=== PATIENT | male | born 1975 | race Caucasian/White ===

== ENCOUNTER → 2017-10-20 12:35 | Outpatient (POV) | payer BC, SELFPAY | PROVIDERS: Family Provider Family Medicine; PCP Family Medicine; Visit Provider Nurse Practitioner Acute Care | DX: Z00.00 Encounter for general adult medical examination without abnormal findings (principal) ==

== ENCOUNTER → 2019-06-07 16:10 | Outpatient (POV) | payer BC, SELFPAY | PROVIDERS: PCP Family Medicine; Visit Provider Nurse Practitioner Family | DX: Z00.00 Encounter for general adult medical examination without abnormal findings (principal) ==

== ENCOUNTER 2020-03-24 16:51 | Emergency (ER) | payer BC, SELFPAY ==
[2020-03-24 17:08] VITALS: BP 136/78; PULSE 69; RESP 20; TEMP 36.8; O2SAT 98; BMI 27.4
--- NOTE | 2020-03-24 17:30 | HMH.EDUTC ---
[facility] [facility] [place] Clinical Impression: Otitis media Qualifiers: Otitis media type: suppurative Chronicity: acute Laterality: bilateral Recurrence: non-recurrent Spontaneous tympanic membrane rupture: without spontaneous rupture Qualified Code(s): H66.003 - Acute suppurative otitis media without spontaneous rupture of ear drum, bilateral Disposition: Home, Self-Care Condition on Discharge: Good Instructions: Middle Ear Infection Additional Instructions: Drink plenty of fluids. Take tylenol or ibuprofen for pain or fever. Take the medications as directed. Follow up with your regular doctor. GO TO THE ER FOR ANY WORSENING SYMPTOMS Prescriptions: methylPREDNISolone [Medrol] 4 mg PO DIRECTED 6 Days #21 tab.ds.pk Transmission Status: Received by [facility] Azithromycin [Z-Justyn 250mg Tab*] 250 mg PO UD DOSE PK #6 tab Transmission Status: Received by [facility] Referrals: Aditya Pendleton MD [Primary Care Provider] - Forms: Work/School Release Time of Disposition: 17:42 Medical Decision Making - Medical Records Medical records reviewed: No: I reviewed the patient's medical records. - Néstor Inquiry Pt receiving controlled substance: No Vital Signs: 03/24/20 17:08 03/24/20 17:48 Temperature 98.3 F 98.3 F Temperature Source Oral Pulse Rate 69 Pulse Rate [Right Brachial] 69 Respiratory Rate 20 20 Blood Pressure 136/78 Blood Pressure [Right Arm] 136/78 Blood Pressure Mean [Right Arm] 97 Blood Pressure Source [Right Arm] Automatic Cuff Blood Pressure Position [Right Arm] Sitting 02 Sat by Pulse Oximetry 98 Oxygen Delivery Method Room Air Orders (Tests/Meds): ED MEDICATIONS Discontinued Medications Generic Name Dose Route Start Last Admin Trade Name Freq PRN Reason Stop Dose Admin Azithromycin 500 mg 03/24/20 17:37 03/24/20 17:46 Zithromax 250mg Tablet PO 03/24/20 17:38 500 mg ONCE ONE Administration Protocol Methylprednisolone Sodium Succinate 125 mg 03/24/20 17:37 03/24/20 17:46 Solu-Medrol 125mg/2ml Vial IM 03/24/20 17:38 125 mg ONCE ONE Administration [facility] [place] [facility] [place] - General Stated complaint: possible ear infection pain in neck R side Time Seen by Provider: 03/24/20 17:15 Mode of Arrival: Ambulatory Source of Information: Patient Limitations: No Limitations Description of Symptoms (Recalled from Triage Doc. by RN): PATIENT C/O RIGHT EAR AND NECK PAIN X 2 DAYS. TOOK IBUPROFEN 2 HOURS DEEP FAT COOK FRY HEENT Symptoms (Recalled from RN notes): Yes Resp Symptoms (Recalled from RN notes): No Skin Symptoms (Recalled from RN notes): No MS Symptoms (Recalled from RN notes): No Functional Status (Recalled from RN notes): WNL - History of Present Illness Provider Complaint: He c/o right ear pain for the past 3 days. 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 - Related Data Home Medications Medication Instructions Recorded Confirmed Benazepril HCl 10 mg PO DAILY 02/28/18 03/24/20 Colestipol HCl 1 gm PO DAILY 02/28/18 03/24/20 Omeprazole [Omeprazole 40mg 40 mg PO DAILY 02/28/18 03/24/20 Capsule] Previous Rx's Medication Instructions Recorded Azithromycin [Z-Justyn 250mg Tab*] 250 mg PO UD DOSE PK #6 tab 03/24/20 methylPREDNISolone [Medrol] 4 mg PO DIRECTED 6 Days #21 03/24/20 tab.ds.pk Allergies Allergy/AdvReac Type Severity Reaction Status Date / Time Penicillins Allergy Unknown Verified 02/28/18 11:45 - Worker's Comp Is this a Worker's Comp case?: No H History - Hepatitis A Screen Drug use history?: No High risk sexual behaviors?: No History of sexually transmitted infection?: No Currently employed?: No Childcare worker?: No Do you have indoor plumbing?: Yes Do you have electricity?: Yes Attestation statement:: This patient has been screened for Hepatitis A risk factors. I have reviewed the patient's past medical history: Yes
[2020-03-24 17:48] VITALS: BP 136/78; PULSE 69; RESP 20; TEMP 36.8; O2SAT 98
== END 2020-03-24 18:00 | disposition home or self-care (01) ==
PROVIDERS: Emergency Provider Nurse Practitioner Family; PCP Family Medicine
DX: H66.003 Acute suppurative otitis media without spontaneous rupture of ear drum, bilateral (principal); Z88.0 Allergy status to penicillin; Z90.09 Acquired absence of other part of head and neck
CPT/HCPCS: 96372; 99201

== ENCOUNTER 2021-01-06 16:45 | Emergency (ER) | payer BC, SELFPAY ==
[2021-01-06 17:11] VITALS: BP 129/82; PULSE 68; RESP 19; TEMP 36.8; O2SAT 99; BMI 26.4
[2021-01-06 17:23] LABS: UTC Strep Screen (Rapid) Negative (Negative)
--- NOTE | 2021-01-06 17:26 | HMH.EDUTC ---
[facility] [place] Clinical Impression: Strep throat Otitis media Qualifiers: Otitis media type: suppurative Chronicity: acute Laterality: right Recurrence: non-recurrent Spontaneous tympanic membrane rupture: without spontaneous rupture Qualified Code(s): H66.001 - Acute suppurative otitis media without spontaneous rupture of ear drum, right ear Disposition: Home, Self-Care Condition on Discharge: Good Instructions: Middle Ear Infection, Strep Throat Additional Instructions: Start antibiotics today be sure to take it as ordered with the full length of time although you should start feeling better in 24-48 hours. Change toothbrush and toothpaste 24-48 hours after starting antibiotics Tylenol or Motrin as needed for fever or pain Encourage fluids, water, Gatorade, Powerade, try cold fluids, popsicles, ice cream will make it feel better You are contagious for 24 hours. Avoid kissing anyone, no eating or drinking after anyone. You are contagious. Follow-up the ER for new or worsening symptoms or no noticeable improvement over the next 24-48 hours. Start antibiotic as soon as possible and be sure to take as ordered for full length of time even though he should start feeling better in 24-48 hours. Tylenol or Motrin as needed for pain or fever Encourage fluids, water, Gatorade, Powerade, Pedialyte if infant/toddler/child Warm compresses often helps when placed over ear Return immediately for new or worsening symptoms no noticeable improvement in 48-72 hours and in 10-14 days to ensure the ears are return to baseline. Follow-up with primary care Prescriptions: predniSONE [Prednisone 20mg Tab] 20 mg PO BID #10 tab Transmission Status: Pending to [facility] Azithromycin [Zithromax 250mg tab] 250 mg PO DIRECTED #6 tab Transmission Status: Pending to [facility] Referrals: Aditya Pendleton MD [Primary Care Provider] - Time of Disposition: 17:31 Medical Decision Making - Néstor Inquiry Pt receiving controlled substance: No Vital Signs: 01/06/21 17:11 Temperature 98.3 F Temperature Source Oral Pulse Rate [Right Brachial] 68 Respiratory Rate 19 Blood Pressure [Right Arm] 129/82 Blood Pressure Mean [Right Arm] 97 Blood Pressure Source [Right Arm] Automatic Cuff Blood Pressure Position [Right Arm] Sitting 02 Sat by Pulse Oximetry 99 Oxygen Delivery Method Room Air - Lab Data Lab Results 01/06/21 17:06: Strep Scn Rapid Clinic Negative Orders (Tests/Meds): ORDERS Category Date Time Status Strep Screen Confirmation Stat Micro 01/06/21 17:06 Received [facility] [place] HPI - General Chief complaint: Urgent Treatment Center Stated complaint: Sore Throat Time Seen by Provider: 01/06/21 17:26 Mode of Arrival: Ambulatory Source of Information: Patient Limitations: No Limitations Description of Symptoms (Recalled from Triage Doc. by RN): PATIENT C/O SORE THROAT X 3 WEEKS HEENT Symptoms (Recalled from RN notes): Yes Resp Symptoms (Recalled from RN notes): No Skin Symptoms (Recalled from RN notes): No MS Symptoms (Recalled from RN notes): No Functional Status (Recalled from RN notes): WNL - History of Present Illness Provider Complaint: 45 yr old male presents for sore throat and ear pressure for 4 days. pt states his throat hurts to swallow and as he talks he becomes horse. - Related Data Home Medications Medication Instructions Recorded Confirmed Benazepril HCl 10 mg PO DAILY 02/28/18 03/24/20 Colestipol HCl 1 gm PO DAILY 02/28/18 03/24/20 Omeprazole [Omeprazole 40mg 40 mg PO DAILY 02/28/18 03/24/20 Capsule] Previous Rx's Medication Instructions Recorded Azithromycin [Z-Justyn 250mg Tab*] 250 mg PO UD DOSE PK #6 tab 03/24/20 methylPREDNISolone [Medrol] 4 mg PO DIRECTED 6 Days #21 03/24/20 tab.ds.pk Azithromycin [Zithromax 250mg 250 mg PO DIRECTED #6 tab 01/06/21 tab] predniSONE [Prednisone 20mg 20 mg PO BID #10 tab 01/06/21 Tab] Selvin
[2021-01-06 17:30] VITALS: BP 129/82; PULSE 68; RESP 19; TEMP 36.8; O2SAT 99
== END 2021-01-06 17:33 | disposition home or self-care (01) ==
PROVIDERS: Emergency Provider Nurse Practitioner Family; PCP Family Medicine
DX: J02.0 Streptococcal pharyngitis (principal); H66.001 Acute suppurative otitis media without spontaneous rupture of ear drum, right ear; I10 Essential (primary) hypertension; Z79.899 Other long term (current) drug therapy; Z88.0 Allergy status to penicillin
CPT/HCPCS: 87880; 99202; G0463

== ENCOUNTER 2022-05-11 09:06 | Emergency (ER) | payer BC, OTHER, SELFPAY ==
[2022-05-11 09:30] VITALS: BP 140/91; PULSE 76; RESP 20; TEMP 36.9; O2SAT 98; BMI 24.8
[2022-05-11 09:41] LABS: UTC Strep Screen (Rapid) Negative (Negative)
[2022-05-11 09:43] LABS: Adenovirus,PCR Not Detected (NotDetected); Bordetella Pertussis Not Detected (NotDetected); Chlamydophila Pneumoniae, PCR Not Detected (NotDetected); Coronavirus 229E Not Detected (NotDetected); Coronavirus NL63 Not Detected (NotDetected); Coronavirus OC43 Not Detected (NotDetected); Coronovirus HKU1,PCR Not Detected (NotDetected); Human Metapneumovirus Not Detected (NotDetected); Influenza A, PCR Not Detected (NotDetected); Influenza AH1, 2009 Not Detected (NotDetected); Influenza AH1, PCR Not Detected (NotDetected); Influenza AH3,PCR Not Detected (NotDetected); Influenza B, PCR Not Detected (NotDetected); Mycoplasma Pneumoniae, PCR Not Detected (NotDetected); Parainfluenza 1, PCR Not Detected (NotDetected); Parainfluenza 2, PCR Not Detected (NotDetected); Parainfluenza 3, PCR Not Detected (NotDetected); Parainfluenza 4, PCR Not Detected (NotDetected); Respiratory Syncytial Virus Not Detected (NotDetected); Rhinovirus/Enterovirus Not Detected (NotDetected)
--- NOTE | 2022-05-11 09:50 | HMH.EDUTC ---
[facility] [place] Impression: Maxillary sinusitis, acute Qualifiers: Recurrence: non-recurrent Qualified Code(s): J01.00 - Acute maxillary sinusitis, unspecified Disposition: Home, Self-Care Condition on Discharge: Good Instructions: DI for Sinusitis Additional Instructions: Start antibiotic patient to take as ordered for a full length of time even if you feel better. Sinus infections do not get better overnight. It may take 2-3 days to notice much improvement so be sure to use conservative measures as discussed for symptoms. Flonase 1 spray each nostril daily to help with nasal congestion, sinus and ear pressure/information Increase fluids Humidifier/vaporizer as needed Tylenol and ibuprofen as needed for fever or pain. If symptoms do not improve or get worse return or be seen in the ER Follow-up with primary care this week Prescriptions: Azithromycin [Zithromax 250mg tab] 250 mg PO DIRECTED #6 tab Transmission Status: Pending to [id number] Referrals: Aditya Pendleton MD [Primary Care Provider] - Time of Disposition: 10:07 Medical Decision Making - Néstor Inquiry Pt receiving controlled substance: No Vital Signs: 05/11/22 09:30 Temperature 98.5 F Temperature Source Oral Pulse Rate [Right Brachial] 76 Respiratory Rate 20 Blood Pressure [Right Arm] 140/91 H Blood Pressure Mean [Right Arm] 107 Blood Pressure Source [Right Arm] Automatic Cuff Blood Pressure Position [Right Arm] Sitting 02 Sat by Pulse Oximetry 98 Oxygen Delivery Method Room Air - Lab Data Lab Results 05/11/22 09:34: Strep Scn Rapid Clinic Negative Orders (Tests/Meds): ORDERS Category Date Time Status Full Resp Panel w/COVID ([facility]) Routine Lab 05/11/22 09:34 Received Strep Screen Confirmation Stat Micro 05/11/22 09:34 [place] [facility] [place] - General Chief complaint: Urgent Treatment Center Stated complaint: Bodyaches, fever, headache Time Seen by Provider: 05/11/22 09:50 Mode of Arrival: Ambulatory Source of Information: Patient Limitations: No Limitations Description of Symptoms (Recalled from Triage Doc. by RN): PATIENT C/O FEVER, COUGH, SORE THROAT, AND BODY ACHES SINCE FRIDAY HEENT Symptoms (Recalled from RN notes): Yes Resp Symptoms (Recalled from RN notes): No Skin Symptoms (Recalled from RN notes): No MS Symptoms (Recalled from RN notes): No Functional Status (Recalled from RN notes): WNL - History of Present Illness Provider Complaint: 47 yr old male presents for cough,fever,sore throat, body aches and chills since thurs - Related Data Home Medications Medication Instructions Recorded Confirmed Benazepril HCl 10 mg PO DAILY 02/28/18 05/11/22 Omeprazole [Omeprazole 40mg 40 mg PO DAILY 02/28/18 05/11/22 Capsule] Previous Rx's Medication Instructions Recorded Azithromycin [Zithromax 250mg 250 mg PO DIRECTED #6 tab 05/11/22 tab] Allergies Allergy/AdvReac Type Severity Reaction Status Date / Time Penicillins Allergy Unknown Verified 02/28/18 11:45 - Worker's Comp Is this a Worker's Comp case?: No [facility] History - Hepatitis A Screen Attestation statement:: This patient has been screened for Hepatitis A risk factors. I have reviewed the patient's past medical history: Yes 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: Denies:: Cancer, Diabetes Mellitus Type 1, Diabetes Mellitus Type 2, MRSA Laterality Cases: Bilateral: Tonsillectomy Amputation: No Fractures: No - Social History Smoking Status: Never smoker Alcohol Intake: never Alcohol Intake Frequency:: holidays/special occasions only Occupational Status: other ROS Obtained: Yes Systems reviewed as appropriate & no additional complaints - Constitutional Constitutional: Reports system reviewed and no additional complaints, except as docu, Reports body ache, Reports chills, Reports fatigue, Reports fever(s) - Eyes Eyes: Reports system reviewed and no additional complaints, except as docu, Denies dry
[2022-05-11 10:02] VITALS: BP 140/91; PULSE 76; RESP 20; TEMP 36.9; O2SAT 98
[2022-05-11 12:32] LABS: Coronavirus 19, PCR Detected (NotDetected)
== END 2022-05-11 10:10 | disposition home or self-care (01) ==
PROVIDERS: Emergency Provider Nurse Practitioner Family; PCP Family Medicine
DX: J01.00 Acute maxillary sinusitis, unspecified (principal); Z20.822 Contact with and (suspected) exposure to COVID-19; R50.9 Fever, unspecified
CPT/HCPCS: 87581; 87632; 87798; 87880; 99212; C9803; G0463; U0003; U0005

== ENCOUNTER 2022-09-14 11:39 | Emergency (ER) | payer BC, OTHER, SELFPAY ==
[2022-09-14 12:10] VITALS: BP 155/107; PULSE 90; RESP 20; TEMP 36.9; O2SAT 97; BMI 28.2
--- NOTE | 2022-09-14 12:41 | EXP.UTC ---
Discharge Plan Disposition Patient Disposition: Home, Self-Care Condition: Good Prescriptions Prescriptions: New doxycycline hyclate 100 mg capsule 100 mg PO BID Qty: 20 0RF benzonatate 100 mg capsule 100 mg PO TID PRN (Reason: cough) Qty: 30 0RF No Action omeprazole 40 MG capsule,delayed release(DR/EC) 40 mg PO DAILY benazepril 10 MG tablet 10 mg PO DAILY Referrals Follow up/Referrals: Aditya Pendleton MD [Primary Care Provider] - See instructions Activity Restrictions/Add. Instructions Additional Instructions/Restrictions: *Monitor Temp, Over the counter Motrin or Tylenol as directed/as needed Tylenol every 4 hours and Motrin every 6 hours (as long as your family doctor has told you that you can take it) for fever or pain. and straight to ER if unable to lower temp less than 101.0 after medication given *Warm salt water gargles may help to soothe the throat *Throat Lozenges? *Warm fluids like tea with honey may help to soothe the throat? *Sleep elevated *Humidifier/Vaporizer Take medication as prescribed Follow up IMMEDIATELY for new or worsening symptoms or no Noticeable improvement over the next 48-72 hours. 911 for difficulty breathing or swallowing Clinical Impressions Clinical Impression: Sinusitis Instructions Patient Instructions: DI for Sinusitis, Sinusitis Discharge ED Provider: Nikkie Roy [facility] [place] HPI General Stated complaint: cough, soa Mode of Arrival: Ambulatory Source of Information: Patient Limitations: No Limitations Time Seen by Provider: 09/14/22 12:42 Description of Symptoms (Recalled from Triage Doc. by RN): PATIENT C/O COUGH, SINUS CONGESTION, AND EAR PAIN X 2-3 DAYS HEENT Symptoms (Recalled from RN notes): Yes Resp Symptoms (Recalled from RN notes): Yes Skin Symptoms (Recalled from RN notes): No MS Symptoms (Recalled from RN notes): No Functional Status (Recalled from RN notes): WNL History of Present Illness Provider Complaint: Patient states that he has been having sinus pain and pressure for over a week States that now he is also having pain in his ears, and a little cough States that he thinks he may have a sinus infection but wanted to get it checked Related Data Home Medications Medication Instructions Recorded Confirmed benazepril 10 mg tablet 10 mg PO DAILY Hypertension 02/28/18 09/14/22 omeprazole 40 mg capsule,delayed 40 mg PO DAILY GERD 02/28/18 09/14/22 release Previous Rx's Medication Instructions Recorded benzonatate 100 mg capsule 100 mg PO TID PRN cough #30 caps 09/14/22 doxycycline hyclate 100 mg capsule 100 mg PO BID #20 caps 09/14/22 Allergies Allergy/AdvReac Type Severity Reaction Status Date / Time Penicillins Allergy Unknown Verified 02/28/18 11:45 Worker's Comp Is this a Worker's Comp case?: No [facility] Disclaimer: The information contained in this section may have been updated after the patient was seen, as this information can be updated by other users. 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 (Updated 09/14/22 @ 12:48 by Nikkie Roy APRN) Hyperlipidemia Hypertension Surgical History (Updated 09/14/22 @ 12:27 by Carolin Robins RN) History of cholecystectomy History of tonsillectomy Social History (Updated 09/14/22 @ 12:27 by Carolin Robins RN) Smoking Status: Never smoker alcohol intake: never current occupational status: other Travel in the last 8 weeks: None ROS Obtained: Yes All systems reviewed & no additional complaints except as documented and Yes Systems reviewed as appropriate & no additional complaints except as documented Constitutional Constitutional: Reports system reviewed and no additional complaints, except as documented and Reports as per HPI ENT Ears, Nose, Mouth, and Throat: Reports system reviewed and no additional complaints, except as documented, Reports as per HPI, Reports otalgia, Reports sinus pain and Reports sinus pressure Cardiovascula
[2022-09-14 12:49] VITALS: BP 155/107; PULSE 90; RESP 20; TEMP 36.9; O2SAT 97
== END 2022-09-14 12:55 | disposition home or self-care (01) ==
PROVIDERS: Emergency Provider Nurse Practitioner; PCP Family Medicine
DX: J32.9 Chronic sinusitis, unspecified (principal)
CPT/HCPCS: 99212; G0463

== ENCOUNTER → 2022-10-26 11:32 | Outpatient (CLI) | payer BC, OTHER, SELFPAY ==
--- NOTE | 2022-10-26 11:36 | XR_ITS ---
PROCEDURE INFORMATION: Exam: XR Right Shoulder Exam date and time: 10/26/2022 11:38 AM Age: 47 years old Clinical indication: Pain; Shoulder; Right; Additional info: Shoulder pain TECHNIQUE: Imaging protocol: Radiologic exam of the Right shoulder. Views: 2 or more views. COMPARISON: No relevant prior studies available. FINDINGS: Bones/joints: Normal. Soft tissues: Normal. IMPRESSION: No acute findings.
== END ==
PROVIDERS: PCP Family Medicine; Visit Provider Orthopaedic Surgery
DX: M25.511 Pain in right shoulder (principal)
CPT/HCPCS: 73030

== ENCOUNTER 2022-12-21 08:04 | Emergency (ER) | payer BC, OTHER, SELFPAY ==
[2022-12-21 08:15] VITALS: BP 152/98; PULSE 64; RESP 20; TEMP 37; O2SAT 98; BMI 27.4
--- NOTE | 2022-12-21 08:52 | EXP.UTC ---
Discharge Plan Disposition Patient Disposition: Home, Self-Care Condition: Good Prescriptions Prescriptions: New cephalexin [cephalexin] 500 mg tablet 500 mg PO BID 10 Days Qty: 20 0RF fluticasone propionate [fluticasone propionate] 50 mcg/actuation spray,suspension 1 spray intranasal DAILY Qty: 9.9 0RF No Action omeprazole 40 MG capsule,delayed release(DR/EC) 40 mg PO DAILY benazepril 10 MG tablet 10 mg PO DAILY Referrals Follow up/Referrals: Aditya Pendleton MD [Primary Care Provider] - See instructions Activity Restrictions/Add. Instructions Additional Instructions/Restrictions: Start antibiotic as soon as possible and be sure to take as ordered for full length of time even though he should start feeling better in 24-48 hours. Tylenol or Motrin as needed for pain or fever Encourage fluids, water, Gatorade, Powerade, Pedialyte if /toddler/child Warm compresses often helps when placed over ear Return immediately for new or worsening symptoms no noticeable improvement in 48-72 hours and in 10-14 days to ensure the ears are return to baseline. Follow-up with primary care Clinical Impressions Clinical Impression: Otitis media, Allergic rhinitis Instructions Patient Instructions: Middle Ear Infection, DI for Allergic Rhinitis Discharge ED Provider: Lupillo ([facility])Courtney [facility] [place] HPI General Stated complaint: LT ear pain Mode of Arrival: Ambulatory Source of Information: Patient Limitations: No Limitations Time Seen by Provider: 12/21/22 08:56 Description of Symptoms (Recalled from Triage Doc. by RN): PATIENT C/O EAR PRESSURE AND COUGH HEENT Symptoms (Recalled from RN notes): Yes Resp Symptoms (Recalled from RN notes): Yes Skin Symptoms (Recalled from RN notes): No MS Symptoms (Recalled from RN notes): No Functional Status (Recalled from RN notes): WNL History of Present Illness Provider Complaint: 47 yr old male presents for marlon ear pressure and cough. pt states left is worse than rt Related Data Home Medications Medication Instructions Recorded Confirmed benazepril 10 mg tablet 10 mg PO DAILY Hypertension 02/28/18 12/21/22 omeprazole 40 mg capsule,delayed 40 mg PO DAILY GERD 02/28/18 12/21/22 release Previous Rx's Medication Instructions Recorded cephalexin 500 mg tablet 500 mg PO BID 10 days #20 tabs 12/21/22 fluticasone propionate 50 1 spray intranasal DAILY #9.9 mL 12/21/22 mcg/actuation nasal spray,suspension Allergies Allergy/AdvReac Type Severity Reaction Status Date / Time Penicillins Allergy Unknown Verified 11/12/22 09:13 Worker's Comp Is this a Worker's Comp case?: No [facility] Disclaimer: The information contained in this section may have been updated after the patient was seen, as this information can be updated by other users. 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 (Reviewed 12/21/22 @ 08:57 by Courtney Wesley ([facility]), [employer]) Hyperlipidemia Hypertension Surgical History (Reviewed 12/21/22 @ 08:57 by Courtney Wesley ([facility]), [employer]) History of cholecystectomy History of tonsillectomy Social History (Reviewed 12/21/22 @ 08:57 by Courtney Wesley ([facility]), [employer]) Smoking Status: Never smoker alcohol intake: never current occupational status: other Travel in the last 8 weeks: None ROS Obtained: Yes All systems reviewed & no additional complaints except as documented Constitutional Constitutional: Reports system reviewed and no additional complaints, except as documented and Reports as per HPI Eyes Eyes: Reports system reviewed and no additional complaints, except as documented and Reports as per HPI ENT Ears, Nose, Mouth, and Throat: Reports system reviewed and no additional complaints, except as documented, Reports as per HPI and Reports otalgia Cardiovascular Cardiovascular: Reports system reviewed and no additional complaints, except as documented Respiratory Respiratory: Reports system reviewed and no additional complaints, except as documented
[2022-12-21 09:03] VITALS: BP 152/98; PULSE 64; RESP 20; TEMP 37; O2SAT 98
== END 2022-12-21 09:05 | disposition home or self-care (01) ==
PROVIDERS: Emergency Provider Nurse Practitioner Family; PCP Family Medicine
DX: H66.92 Otitis media, unspecified, left ear (principal); J30.9 Allergic rhinitis, unspecified
CPT/HCPCS: 99212; 99214; G0463

== ENCOUNTER → 2023-01-17 14:25 | Outpatient (CLI) | payer BC, OTHER, SELFPAY ==
--- NOTE | 2023-01-17 14:25 | MR_ITS ---
FINAL REPORT CLINICAL HISTORY: shoulder pain dislocated August 2022 and re-injured shoulder early September 2022 pain x 3 months FINDINGS: Multiplanar MR imaging of the right shoulder was performed without contrast. Motion on many of the images decreases exam sensitivity. There is supraspinatus tendinosis with a partial thickness articular surface tear involving less than 50% of tendon thickness. There are small intrasubstance tears of the distal subscapularis tendon involving less than 50% tendon thickness. There is no full-thickness rotator cuff tendon tear. There is AC joint arthrosis with edema in the distal clavicle and acromion that may be inflammatory or posttraumatic. A small amount of fluid is seen in the subacromial/subdeltoid bursa. The glenoid labrum is intact. The long head of the biceps tendon is intact. No significant glenohumeral joint effusion is seen. There is no evidence of fracture or dislocation. The musculature is intact. There is no evidence of soft tissue mass. 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 Partial-thickness supraspinatus tendon tear, less than 50%. Small intrasubstance tears of the distal subscapularis tendon, less than 50%. Reviewed, Interpreted and Dictated by Larry Cruz III, MD Transcribed by Suresh Espitia Authenticated and . [facility]
== END ==
PROVIDERS: PCP Family Medicine; Visit Provider Orthopaedic Surgery
DX: M25.511 Pain in right shoulder (principal); S43.51XA Sprain of right acromioclavicular joint, initial encounter
CPT/HCPCS: 73221

== ENCOUNTER 2023-03-17 16:30 | Outpatient (RCR) | payer BC, OTHER, SELFPAY ==
--- NOTE | 2023-01-30 18:01 | HMH.PTOPEV ---
PT Outpatient Evaluation Rehab PT Outpatient Evaluation Start: 01/30/23 16:01 Freq: Status: Active Protocol: Document 01/30/23 17:37 MURALI (Rec: 01/30/23 18:01 MURALI [id number]) E-signed By Asad Pink, PT Outpatient Therapy Subjective History Subjective History Patient is a 48 year old male presenting to outpatient PT with reports of R shoulder pain 08/2022 while participating in Karate activities. Patient reports that his shoulder dislocated and then reduced itself directly after. Most recent imaging indicates edema of the ACJ and partial tears of supraspinatus and subscapularis. Comorbidities include hx of HTN, GERD, madina , pes planus and L elbow dislocation. Chief Complaint Pain,Clicks,Gives out/Unstable Symptom Type Ache,Sharp Symptoms Relieved By Rest/Positioning,Brace/Support Symptoms Aggravated By Physical Activity,Lifting Prior Functional Limitations None Current Functional Limitations Reaching,Lifting,Housework, Dressing,Sleeping,Recreation Activity Symptom Description Constant but Variable Level of pain today (0-10) 2 Pain scale - at its best (0-10) 1 Pain scale - at its worst (0-10) 8 Shoulder/Elbow Eval Shoulder Objective Measurements Palpation Tenderness tenderness shoulder exam standard right Shoulder Palpation Findings Tenderness Shoulder Palpation Overall Comment ACJ, Pec minor insertion 2/4 Posture Shoulder Posture Sitting Position (R) Rounded,(L) Forward Shoulder Posture Standing Position (R) Rounded,(L) Forward Scapula Posture Sitting Position (L) Protracted,(R) Protracted Scapular Posture Standing Position (L) Protracted,(R) Protracted Shoulder ROM Right full ROM shoulder exam standard right Shoulder MMT Shoulder Abduction Strength Grade 4- Good- Shoulder Flexion Strength Grade 4- Good- Shoulder External Rotation Strength 4- Good- Grade Shoulder Internal Rotation Strength 4- Good- Grade Elbow Objective Measurements Elbow ROM Right full ROM elbow exam standard right Elbow MMT Biceps Brachii Strength Grade 5 Normal Triceps Brachii Strength Grade 4- Good- Outpatient Therapy Assessment Impairments Problems/Impairmments Palpation Tenderness,Impaired Strength,Impaired Lifting,
--- NOTE | 2023-03-03 17:38 | HMH.RHREAS ---
Rehab Reassessment Rehab OP Re-assessment Start: 03/03/23 16:51 Freq: Status: Active Protocol: Document 03/03/23 16:51 SAMARALYNN (Rec: 03/03/23 17:38 REBEKAH [id number]) E-signed By Claudia Dye PT Rehab Re-assessment Subjective Subjective Pt reports he feels 35% improved since starting PT. Pt reports he continues to have constant dull pain and intermittent sharp pain around the AC joint. Pt reports pain at worst as 5-6/10 within the last week. Pt also reports that the shoulder often feels unstable and will catch intermittently. Pt denies recent subluxations. Pt reports he is able to sleep quite a bit better since starting PT. Pt also reports improved cramping of the medial shoulder blade and upper trapezius region with therapy. Pt reports he returns to his doctor at the end of this month for a follow-up visit. Pt reports he is compliant with his HEP most of the time. Objective Objective Notes R shoulder AROM: WNL R shoulder MMT: abduction 4+/5 , ER & IR 4/5, flexion 5/5 + askew-bethel, AC joint compression, empty can - crank test, jerk test Assessment Progress Assessment Progressing as Expected Assessment Notes Pt has attended 7 PT visits consisting of cervical stretching, scapular/RTC strengthening, manual therapy and modalities with good tolerance. Pt demonstrates full R shoulder P/AROM and improved strength since starting PT. Pt continues to report AC joint pain and shoulder instability at times. Pt would continue to benefit from skilled PT to further improve pain severity and shoulder strength/stability to
== END 2023-03-17 16:35 | disposition home or self-care (01) ==
LOC: PT 16:30
PROVIDERS: PCP Family Medicine; Visit Provider Orthopaedic Surgery
DX: M25.511 Pain in right shoulder (principal); M75.111 Incomplete rotator cuff tear or rupture of right shoulder, not specified as traumatic
CPT/HCPCS: 97010; 97014; 97016; 97033; 97035; 97110; 97140; 97163; 97164; 97530; G0283

== ENCOUNTER → 2023-08-06 18:20 | Outpatient (CLI) | payer BC, OTHER, SELFPAY ==
--- NOTE | 2023-08-06 18:31 | XR_ITS ---
FINAL REPORT CLINICAL HISTORY: right shoulder pain FINDINGS: RIGHT SHOULDER Three views demonstrate no acute fracture or dislocation. The joint spaces appear normal. The visualized bony structures are well aligned. No soft tissue abnormality is seen. IMPRESSION: No acute process. Reviewed, Interpreted and Dictated by Larry Cruz III, MD Transcribed by Ara Ch Authenticated and [facility]
== END ==
PROVIDERS: PCP Family Medicine; Visit Provider Orthopaedic Surgery
DX: M75.111 Incomplete rotator cuff tear or rupture of right shoulder, not specified as traumatic (principal)
CPT/HCPCS: 73030

== ENCOUNTER 2023-09-03 15:57 | Emergency (ER) | payer BC, OTHER, SELFPAY ==
[2023-09-03 16:40] VITALS: BP 116/81; PULSE 78; RESP 18; TEMP 36.8; O2SAT 98; BMI 28.8
--- NOTE | 2023-09-03 17:08 | EXP.UTC ---
Discharge Plan Disposition Patient Disposition: Home, Self-Care Condition: Good Prescriptions Prescriptions: New cefdinir 300 mg capsule 300 mg PO BID Qty: 20 0RF No Action omeprazole 40 MG capsule,delayed release(DR/EC) 40 mg PO DAILY fluticasone propionate [fluticasone propionate] 50 mcg/actuation spray,suspension 1 spray intranasal DAILY Qty: 9.9 0RF cetirizine 10 mg tablet 10 mg PO DAILY benazepril-hydrochlorothiazide 10-12.5 mg tablet 1 tab PO DAILY Referrals Follow up/Referrals: Aditya Pendleton MD [Primary Care Provider] - See instructions Activity Restrictions/Add. Instructions Additional Instructions/Restrictions: Start antibiotic as soon as possible and be sure to take as ordered for full length of time even though he should start feeling better in 24-48 hours. Tylenol or Motrin as needed for pain or fever Encourage fluids, water, Gatorade, Powerade, Pedialyte if /toddler/child Warm compresses often helps when placed over ear Return immediately for new or worsening symptoms no noticeable improvement in 48-72 hours and in 10-14 days to ensure the ears are return to baseline. Follow-up with primary care Clinical Impressions Clinical Impression: Otitis media Qualifiers: Otitis media type: suppurative Chronicity: acute Laterality: bilateral Recurrence: non-recurrent Spontaneous tympanic membrane rupture: without spontaneous rupture Qualified Code(s): H66.003 - Acute suppurative otitis media without spontaneous rupture of ear drum, bilateral Instructions Patient Instructions: Middle Ear Infection Discharge ED Provider: Lupillo ([facility])Courtney [facility] [place] HPI General Stated complaint: left ear pain Mode of Arrival: Ambulatory Source of Information: Patient Limitations: No Limitations Time Seen by Provider: 09/03/23 17:08 Description of Symptoms (Recalled from Triage Doc. by RN): left ear pain and sore throat HEENT Symptoms (Recalled from RN notes): Yes Resp Symptoms (Recalled from RN notes): No Skin Symptoms (Recalled from RN notes): No MS Symptoms (Recalled from RN notes): No Functional Status (Recalled from RN notes): n/a History of Present Illness Provider Complaint: 48 yr old male presents for left ear pain and sore throat Related Data Home Medications Medication Instructions Recorded Confirmed omeprazole 40 mg capsule,delayed 40 mg PO DAILY GERD 02/28/18 09/03/23 release benazepril 10 1 tab PO DAILY 09/03/23 09/03/23 mg-hydrochlorothiazide 12.5 mg tablet cetirizine 10 mg tablet 10 mg PO DAILY 09/03/23 09/03/23 Previous Rx's Medication Instructions Recorded fluticasone propionate 50 1 spray intranasal DAILY #9.9 mL 12/21/22 mcg/actuation nasal spray,suspension cefdinir 300 mg capsule 300 mg PO BID #20 caps 09/03/23 Allergies Allergy/AdvReac Type Severity Reaction Status Date / Time Penicillins Allergy Unknown Verified 09/03/23 17:00 Worker's Comp Is this a Worker's Comp case?: No [facility] Disclaimer: The information contained in this section may have been updated after the patient was seen, as this information can be updated by other users. 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
[2023-09-03 17:45] VITALS: BP 116/81; PULSE 78; RESP 18; TEMP 36.8; O2SAT 98
== END 2023-09-03 17:40 | disposition home or self-care (01) ==
PROVIDERS: Emergency Provider Nurse Practitioner Family; PCP Family Medicine
DX: H66.003 Acute suppurative otitis media without spontaneous rupture of ear drum, bilateral (principal); R07.0 Pain in throat; I10 Essential (primary) hypertension; E78.5 Hyperlipidemia, unspecified
CPT/HCPCS: 99212; 99214; G0463

== ENCOUNTER 2023-10-23 12:00 | Outpatient (CLI) | payer BC, OTHER, SELFPAY ==
[2023-10-23 12:04] LABS: Adenovirus F 40/41, stool Not Detected (NotDetected); Astrovirus Not Detected (NotDetected); Campylobacter Not Detected (NotDetected); Clostridium Difficile A/B, PCR Not Detected (NotDetected); Cryptosporidium Not Detected (NotDetected); Cyclospora Cayetanesis Not Detected (NotDetected); Entamoeba histolytica Not Detected (NotDetected); Enteroaggregative E coli Not Detected (NotDetected); Enteropathogenic E coli Not Detected (NotDetected); Enterotoxigenic E coli Not Detected (NotDetected); Giardia lamblia Not Detected (NotDetected); Norovirus Not Detected (NotDetected); Plesimonas Shigalloides, PCR Not Detected (NotDetected); Rotavirus A Not Detected (NotDetected); Salmonella, PCR Not Detected (NotDetected); Sapovirus Not Detected (NotDetected); Shiga-like toxin E coli Not Detected (NotDetected); Shigella Enterovasive E coli Not Detected (NotDetected); Vibrio Cholerae Not Detected (NotDetected); Vibrio, PCR Not Detected (NotDetected); Yersinia Entercolitica, PCR Not Detected (NotDetected)
== END 2023-10-23 23:59 ==
LOC: LAB.DROPOF 12:01
PROVIDERS: PCP Family Medicine; Visit Provider Nurse Practitioner Family
DX: R10.84 Generalized abdominal pain (principal); R19.4 Change in bowel habit; R15.2 Fecal urgency; R19.7 Diarrhea, unspecified
CPT/HCPCS: 87506

== ENCOUNTER 2024-02-18 17:19 | Emergency (ER) | payer BC, OTHER, SELFPAY ==
[2024-02-18 18:25] VITALS: BP 133/83; PULSE 56; RESP 21; TEMP 36.6; O2SAT 98; BMI 28.2
--- NOTE | 2024-02-18 18:46 | ED_ITS ---
Discharge Plan Disposition Patient Disposition: Home, Self-Care Condition: Good Prescriptions Prescriptions: New cefdinir 300 mg capsule 300 mg PO BID 10 Days Qty: 20 0RF ciprofloxacin-dexamethasone [Ciprodex] 0.3-0.1 % drops,suspension 4 drp otic (ear) BID 7 Days Qty: 15 0RF Rx Instructions: bilateral ears as directed fluticasone propionate [Flonase Allergy Relief] 50 mcg/actuation spray,suspension 2 spray intranasal DAILY Qty: 16 0RF Rx Instructions: administer into each nostril daily prednisone 20 mg tablet 20 mg PO BID 5 Days Qty: 10 0RF No Action omeprazole 40 MG capsule,delayed release(DR/EC) 40 mg PO DAILY benazepril-hydrochlorothiazide 10-12.5 mg tablet 1 tab PO DAILY colestipol 1 gram tablet 1 g PO BID Patient Comments: TAKE 1 TABLET BY MOUTH TWICE DAILY Referrals Follow up/Referrals: Aditya Pendleton MD [Primary Care Provider] - See instructions Activity Restrictions/Add. Instructions Additional Instructions/Restrictions: Take medication as prescribed Follow up with your Family Doctor if no improvement or any worsening of symptoms Return if needed Use drops as prescribed Straight to ER if any life threatening symptoms Clinical Impressions Clinical Impression: Otitis media Qualifiers: Otitis media type: suppurative Chronicity: acute Laterality: bilateral Recurrence: non-recurrent Spontaneous tympanic membrane rupture: without spontaneous rupture Qualified Code(s): H66.003 - Acute suppurative otitis media without spontaneous rupture of ear drum, bilateral Instructions Patient Instructions: Middle Ear Infection, Cefdinir, Ciprofloxacin and Dexam ethasone Otic Discharge ED Provider: Nikkie Roy [facility] [place] General Stated complaint: ear ache Mode of Arrival: Ambulatory Source of Information: Patient Limitations: No Limitations Time Seen by Provider: 02/18/24 18:46 Description of Symptoms (Recalled from Triage Doc. by RN): PATIENT C/O BILATERAL EAR ACHE X 2 DAYS HEENT Symptoms (Recalled from RN notes): Yes Resp Symptoms (Recalled from RN notes): No Skin Symptoms (Recalled from RN notes): No MS Symptoms (Recalled from RN notes): No Functional Status (Recalled from RN notes): WNL History of Present Illness Provider Complaint: Patient states that he has been having bilateral ear pain and pressure for several days states today his ears was hurting him worse so he came in to get them checked States feels like his ears is tender and throbbing Related Data Home Medications Medication Instructions Recorded Confirmed omeprazole 40 mg capsule,delayed 40 mg PO DAILY GERD 02/28/18 02/18/24 release benazepril 10 1 tab PO DAILY 09/03/23 02/18/24 mg-hydrochlorothiazide 12.5 mg tablet colestipol 1 gram tablet 1 g PO BID 02/18/24 02/18/24 Previous Rx's Medication Instructions Recorded cefdinir 300 mg capsule 300 mg PO BID 10 days #20 caps 02/18/24 ciprofloxacin 0.3 %-dexamethasone 4 drp otic (ear) BID 7 days #15 mL 02/18/24 0.1 % ear drops,suspension (Ciprodex) fluticasone propionate 50 2 spray intranasal DAILY #16 grams 02/18/24 mcg/actuation nasal spray,suspension (Flonase Allergy Relief) prednisone 20 mg tablet 20 mg PO BID 5 days #10 tabs 02/18/24 Allergies Allergy/AdvReac Type Severity Reaction Status Date / Time Penicillins Allergy Unknown Verified 09/03/23 17:00 Worker's Comp Is this a Worker's Comp case?: No [facility] Disclaimer: The information contained in this section may have been updated after the patient was seen, as this information can be updated by other users. 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 (Reviewed 09/03/23 @ 17:11 by Courtney Wesley ([facility]), CABLE TELEVISION ACCESS COORDINATOR) Hyperlipidemia Hypertension Surgical History (Reviewed 09/03/23 @ 17:11 by Courtney Wesley ([facility]), CABLE TELEVISION ACCESS COORDINATOR) History of cholecystectomy History of tonsillectomy Social History (Reviewed 09/03/23 @ 17:11 by Courtney Wesley ([facility]), CABLE TELEVISION ACCESS COORDINATOR) Smoking Status: Never smoker alcohol intake: never current occupational status: other Travel in the last 8 weeks: None ROS Obtained: Yes All systems reviewed & no additional complaints except as documented and Yes Systems reviewed as appropriate & no additional complaints except as documented Constitutional Constitutional: Reports system reviewed and no additional complaints, except as documented and Reports as per HPI ENT Ears, Nose, Mouth, and Throat: Reports system reviewed and no additional complaints, except as documented, Reports as per HPI and Reports otalgia Cardiovascular Cardiovascular: Reports system reviewed and no additional complaints, except as documented and Reports as per HPI Physical Exam General General appearance: alert and in no apparent distress ENT ENT exam: Present mucous membranes moist Expanded ENT Exam External ear exam: Present pain with movement (left) and external tenderness (left) TM/Canal exam: Left TM: bulging, Right TM: loss of landmarks and Bilateral TM: erythema (worse in right) Respiratory Respiratory exam: Present normal lung sounds bilaterally; Absent respiratory distress Cardiovascular Cardiovascular exam: Present regular rate, normal rhythm and normal heart sounds Neurological Exam Neurological exam: Present alert, oriented X3 and normal gait Medical Decision Making Néstor Inquiry Pt receiving controlled substance: No Néstor was queried for this patient: No Vital Signs: 02/18/24 18:25 Temperature 97.8 F Temperature Source Oral Pulse Rate [Left Brachial] 56 L Respiratory Rate 21 Blood Pressure [Left Arm] 133/83 Blood Pressure Mean [Left Arm] 99 Blood Pressure Source [Left Arm] Automatic Cuff Blood Pressure Position [Left Arm] Sitting 02 Sat by Pulse Oximetry 98 Oxygen Delivery Method Room Air Medical Decision Narrative: Patien states that he is allergic to PCN but can take Cefdnir without complications or reactions
[2024-02-18 19:00] VITALS: BP 133/83; PULSE 56; RESP 21; TEMP 36.6; O2SAT 98
[2024-02-18] MEDS: predniSONE 20MG TAB 20 MG PO (19:04)
[2024-02-18] MEDS: CEFDINIR 300MG CAPSULE 300 MG PO (19:04)
== END 2024-02-18 19:12 | disposition home or self-care (01) ==
PROVIDERS: Emergency Provider Nurse Practitioner; PCP Family Medicine
DX: H66.003 Acute suppurative otitis media without spontaneous rupture of ear drum, bilateral (principal)
CPT/HCPCS: 99212; 99214; G0463

== ENCOUNTER 2024-08-06 14:44 | Outpatient (CLI) | payer BC, OTHER, SELFPAY ==
--- NOTE | 2024-08-06 14:50 | XR_ITS ---
PROCEDURE INFORMATION: Exam: XR Right Elbow Exam date and time: 08/06/2024 3:06 PM Age: 49 years old Clinical indication: Pain; Elbow; Right; Additional info: Elbow pain TECHNIQUE: Imaging protocol: Radiologic exam of the right elbow. Views: 3 or more views. COMPARISON: No relevant prior studies available. FINDINGS: Bones/joints: There is normal anatomic alignment of the right elbow. No fracture or destructive bone lesion. No evidence of a right elbow effusion. Soft tissues: No radiopaque foreign body or gas in the soft tissues. IMPRESSION: No visible bony right elbow injury or effusion.
[2024-08-10 18:41] LABS: QuantiFERON-TB Gold Plus Negative (Negative)
== END 2024-08-06 23:59 | disposition home or self-care (01) ==
LOC: RAD 14:48
PROVIDERS: PCP Family Medicine; Visit Provider Orthopaedic Surgery
DX: M25.521 Pain in right elbow (principal); Z11.1 Encounter for screening for respiratory tuberculosis
CPT/HCPCS: 36415; 73080; 86480

== ENCOUNTER 2024-09-29 19:46 | Emergency (ER) | payer BC, OTHER, SELFPAY ==
[2024-09-29 19:46] VITALS: BP 165/99; PULSE 82; RESP 18; TEMP 36.6; O2SAT 100; BMI 28.2
--- NOTE | 2024-09-29 19:47 | XR_ITS ---
PROCEDURE INFORMATION: Exam: XR Left Ankle Exam date and time: 09/29/2024 7:48 PM Age: 49 years old Clinical indication: Injury or trauma; Fall; Blunt trauma and dislocation; Ankle; Left; Severity of dislocation not specified; Additional info: Deformity TECHNIQUE: Imaging protocol: Radiologic exam of the left ankle. Views: 1 or 2 views. COMPARISON: No relevant prior studies available. FINDINGS: Bones/joints: Oblique fracture of the distal fibula. Fracture of the medial malleolus. Medial dislocation of the tibiotalar joint. Medial displacement of the proximal fibular fragment. Probable fracture of the posterior malleolus. Soft tissues: Moderate edema. IMPRESSION: Fracture dislocation of the ankle, as described above.
[2024-09-29] MEDS: FENTANYL 250MCG/5ML VIAL 75 MCG IV (19:50)
--- NOTE | 2024-09-29 19:54 | PC.NURSE ---
Called transfer center for trauma, we are awaiting a call back at this time
[2024-09-29 20:09] VITALS: PULSE 81; RESP 15; O2SAT 100
[2024-09-29] MEDS: CEFAZOLIN SODIUM 2 GM in 0.9 % SODIUM CHLORIDE 100 ML IV (20:10)
[2024-09-29 20:15] VITALS: PULSE 79; RESP 15; O2SAT 100
[2024-09-29 20:36] VITALS: BP 158/103; PULSE 88; RESP 15; TEMP 36.6; O2SAT 100
--- NOTE | 2024-10-01 22:54 | HMH.EDGENADL ---
Discharge Plan Disposition Patient Disposition: Xfer Short-Term Hosp Condition: Fair Prescriptions Prescriptions: No Action lidocaine HCl 10 mg/mL (1 %) solution 10 mg IJ ONCE Qty: 2 0RF omeprazole 40 MG capsule,delayed release(DR/EC) 40 mg PO DAILY benazepril-hydrochlorothiazide 10-12.5 mg tablet 1 tab PO DAILY colestipol 1 gram tablet 1 g PO BID Patient Comments: TAKE 1 TABLET BY MOUTH TWICE DAILY cefdinir 300 mg capsule 300 mg PO BID 10 Days Qty: 20 0RF ciprofloxacin-dexamethasone [Ciprodex] 0.3-0.1 % drops,suspension 4 drp otic (ear) BID 7 Days Qty: 15 0RF Rx Instructions: bilateral ears as directed fluticasone propionate [Flonase Allergy Relief] 50 mcg/actuation spray,suspension 2 spray intranasal DAILY Qty: 16 0RF Rx Instructions: administer into each nostril daily prednisone 20 mg tablet 20 mg PO BID 5 Days Qty: 10 0RF Referrals Follow up/Referrals: Aditya Pendleton MD [Primary Care Provider] - See instructions Clinical Impressions Clinical Impression: Ankle fracture, left Stand Alone Forms Stand Alone Forms: Transfer Record - ED Print Language Print Language: Sami Discharge ED Provider: Chato Andrew Adult HPI General Chief complaint: Extremity Injury, Lower Stated complaint: L ankle deformity, foot purple with no pulse Time Seen by Provider: 09/29/24 19:47 Mode of Arrival: EMS Source of Information: Patient and EMS Limitations: Physical Limitations Description of Symptoms (Recalled from ER Triage Doc. by RN): Patient reports he slipped on ice around 6:20 and his left ankle went one direction while his body went the other direction. Obvious deformity noted to left ankle. Foot purple. No pulse via doppler. History of Present Illness HPI narrative: Patient presents for evaluation of deformity and pain numbness tingling to left ankle after fall on ice. History limited secondary to acuity of patient condition. Patient reports he is up-to-date on tetanus and denies any blood thinner usage or chronic medical conditions. No injury elsewhere or reported head injury or loss of consciousness. Symptoms were acute in onset at approximately 620 this morning. No previous surgeries on this foot. Please note that above description of symptoms, in this electronic medical record under categorization of recalled from ER triage doctor by RN are reflective of an initial nursing assessment, however, is not reflective of my full history and physical exam that was personally taken and clarified. Consequentially, this preceding description of symptoms, which may include the patient's categorized chief complaint in the EMR, do not reflect my personal clinical impression, and the ultimate description of history of present illness and patient stated complaints should be deferred to this section of the note. Unless stated otherwise or congruent with this section of the note, additional signs, symptoms, or incongruence should be interpreted as inaccurate with my clinical impression. Related Data Home Medications ?Medication ?Instructions ?Recorded ?Confirmed omeprazole 40 mg capsule,delayed 40 mg PO DAILY GERD 02/28/18 08/10/24 release benazepril 10 1 tab PO DAILY 09/03/23 08/10/24 mg-hydrochlorothiazide 12.5 mg tablet colestipol 1 gram tablet 1 g PO BID 02/18/24 08/10/24 Previous Rx's ?Medication ?Instructions ?Recorded cefdinir 300 mg capsule 300 mg PO BID 10 days #20 caps 02/18/24 ciprofloxacin 0.3 %-dexamethasone 4 drp otic (ear) BID 7 days #15 mL 02/18/24 0.1 % ear drops,suspension (Ciprodex) fluticasone propionate 50 2 spray intranasal DAILY #16 grams 02/18/24 mcg/actuation nasal spray,suspension (Flonase Allergy Relief) prednisone 20 mg tablet 20 mg PO BID 5 days #10 tabs 02/18/24 Allergies Allergy/AdvReac Type Severity Reaction Status Date / Time Penicillins Allergy Unknown Verified 08/10/24 15:21 [facility] Disclaimer: The information contained in this section may have been updated after the patient was seen, as this information can be updated by other users. 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) Smoking Status: Former smoker alcohol intake: never current occupational status: other Travel in the last 8 weeks: None Have you lived/traveled outside [place] in past 30 days?: No Contact w/someone who lives/traveled outside [place] past 30 days?: No Exposure to someone with infectious disease in past 14 days?: No Do you have a fever (greater than 100.4 F or 38 C)?: No Have you tested positive for COVID-19: No Exposed to someone with COVID-19 in past 14 days?: No Do you have a sore throat?: No Do you have a cough?: No Do you have any weakness?: No Do you have any diarrhea?: No Are you experiencing any unusual bleeding?: No Do you have any muscle aches/pain?: No Do you have any abdominal pain?: No Are you experiencing loss of taste or smell?: No ROS Obtained: Yes other As per HPI Physical Exam General General appearance: alert and in distress Head Head exam: atraumatic and normocephalic Eye Eye exam: Present normal appearance Neck Neck exam: Present normal inspection Chest Chest inspection: Present normal inspection and symmetric chest wall rise Respiratory Respiratory exam: Present normal lung sounds bilaterally; Absent respiratory distress Cardiovascular Cardiovascular exam: Present regular rate and normal rhythm Abdominal Exam Abdominal exam: Present soft Neurological Exam Neurological exam: Present alert and oriented X3 Psychiatric Psychiatric exam: Present anxious Skin Skin exam: Present warm and dry Other Other exam information: Deformity with abrasion on medial aspect of left ankle, dorsalis pedis pulse very faintly palpable, delayed capillary refill. Medical Decision Making Medical Records Medical records reviewed: Yes I reviewed the patient's medical records. Screening: Per USPSTF and CDC recommendations, given the prevalence of disease in our region, it is our hospital?s policy to screen for HIV and viral Hepatitis for all patients aged 18 and over and those with ongoing risk factors. Néstor Inquiry Pt receiving controlled substance: No Vital Signs: 09/29/24 19:46 09/29/24 20:09 09/29/24 20:15 Temperature 97.9 F Temperature Source Oral Pulse Rate 81 79 Pulse Rate [Right Radial] 82 Respiratory Rate 18 15 15 Blood Pressure Blood Pressure [Right Arm] 165/99 H Blood Pressure Mean [Right Arm] 121 Blood Pressure Source Blood Pressure Source [Right Arm] Automatic Cuff Blood Pressure Position Blood Pressure Position [Right Arm] Supine 02 Sat by Pulse Oximetry 100 100 100 Oxygen Delivery Method Room Air Oxygen Flow Rate (LPM) 09/29/24 20:36 Temperature 97.9 F Temperature Source Pulse Rate 88 Pulse Rate [Right Radial] Respiratory Rate 15 Blood Pressure 158/103 H Blood Pressure [Right Arm] Blood Pressure Mean [Right Arm] Blood Pressure Source Automatic Cuff Blood Pressure Source [Right Arm] Blood Pressure Position Supine Blood Pressure Position [Right Arm] 02 Sat by Pulse Oximetry Oxygen Delivery Method Nasal Cannula Oxygen Flow Rate (LPM) 2 Orders (Tests/Meds): ED MEDICATIONS Discontinued Medications Generic Name Dose Route Start Last Admin Trade Name Freq PRN Reason Stop Dose Admin Cefazolin Sodium 2 gm 09/29/24 19:47 09/29/24 20:11 Cefazolin 2gm Vial IV 09/29/24 19:48 Not Given ONCE ONE Fentanyl Citrate 75 mcg 09/29/24 20:40 09/29/24 19:50 Fentanyl 250mcg/5ml Vial IV 09/29/24 20:41 75 mcg ONCE ONE Administration Cefazolin Sodium 2 gm/ Sodium 100 mls @ 200 mls/hr 09/29/24 20:15 09/29/24 20:10 Chloride IV 09/29/24 20:44 200 mls/hr ONCE ONE Administration Tetanus/Reduced Diphtheria/Acell Pertussis 0.5 ml 09/29/24 19:47 09/29/24 20:04 Tet/Diphth/Pert-Adult 0.5ml Syringe IM 09/29/24 19:48 Not Given .ONCE ONE ORDERS Category Date Time Status XR ankle LT 2V Stat Exams 09/29/24 19:47 Completed Medical Decision Narrative: Patient with history and exam per above presenting for evaluation of left ankle injury and deformity Diagnoses considered include fracture, dislocation, vascular injury, nerve injury. ED workup and treatment included: ED MEDICATIONS Discontinued Medications Generic Name Dose Route Start Last Admin Trade Name Freq PRN Reason Stop Dose Admin Cefazolin Sodium 2 gm 09/29/24 19:47 09/29/24 20:11 Cefazolin 2gm Vial IV 09/29/24 19:48 Not Given ONCE ONE Fentanyl Citrate 75 mcg 09/29/24 20:40 09/29/24 19:50 Fentanyl 250mcg/5ml Vial IV 09/29/24 20:41 75 mcg ONCE ONE Administration Cefazolin Sodium 2 gm/ Sodium 100 mls @ 200 mls/hr 09/29/24 20:15 09/29/24 20:10 Chloride IV 09/29/24 20:44 200 mls/hr ONCE ONE Administration Tetanus/Reduced Diphtheria/Acell Pertussis 0.5 ml 09/29/24 19:47 09/29/24 20:04 Tet/Diphth/Pert-Adult 0.5ml Syringe IM 09/29/24 19:48 Not Given .ONCE ONE ORDERS Category Date Time Status XR ankle LT 2V Stat Exams 09/29/24 19:47 Completed Imaging was independently visualized and interpreted by me revealing fracture dislocation of left ankle. Patient will benefit from expeditious transfer to trauma facility. Reduction was attempted with no improvement of symptoms. Patient expeditiously transferred to [facility] for further management. Critical Care Critical Care Time Critical Care Time: No
== END 2024-09-29 20:38 | disposition short-term general hospital (02) ==
PROVIDERS: Emergency Provider Emergency Medicine; PCP Family Medicine
DX: S82.892A Other fracture of left lower leg, initial encounter for closed fracture (principal); M25.572 Pain in left ankle and joints of left foot; W00.0XXA Fall on same level due to ice and snow, initial encounter; Y93.89 Activity, other specified; Y92.9 Unspecified place or not applicable
CPT/HCPCS: 73600; 90471; 90715; 96365; 96374; 99283; J0690; J3010

== ENCOUNTER 2024-11-18 17:00 | Outpatient (RCR) | payer BC, OTHER, SELFPAY | END 2024-11-18 23:59 | disposition home or self-care (01) | LOC: PT 17:00 | PROVIDERS: PCP Family Medicine; Visit Provider Orthopaedic Surgery Orthopaedic Trauma | DX: Z98.890 Other specified postprocedural states (principal); M25.572 Pain in left ankle and joints of left foot | CPT/HCPCS: 97016; 97110; 97116; 97140; 97163 ==

== ENCOUNTER 2024-12-20 17:00 | Outpatient (RCR) | payer BC, OTHER, SELFPAY | END 2024-12-20 23:59 | disposition home or self-care (01) | LOC: PT 17:00 | PROVIDERS: PCP Family Medicine; Visit Provider Orthopaedic Surgery Orthopaedic Trauma | DX: Z98.890 Other specified postprocedural states (principal) | CPT/HCPCS: 97014; 97016; 97110; 97116; 97140; 97530; G0283 ==

== ENCOUNTER 2025-01-17 17:00 | Outpatient (RCR) | payer BC, OTHER, SELFPAY | END 2025-01-17 23:59 | disposition home or self-care (01) | LOC: PT 17:00 | PROVIDERS: PCP Family Medicine; Visit Provider Orthopaedic Surgery Orthopaedic Trauma | DX: Z98.890 Other specified postprocedural states (principal) | CPT/HCPCS: 97016; 97035; 97110; 97112; 97140; 97530 ==

== ENCOUNTER 2025-02-15 17:00 | Outpatient (RCR) | payer BC, OTHER, SELFPAY | END 2025-02-15 23:59 | disposition home or self-care (01) | LOC: PT 17:00 | PROVIDERS: Visit Provider Orthopaedic Surgery Orthopaedic Trauma | DX: Z47.89 Encounter for other orthopedic aftercare (principal); Z98.890 Other specified postprocedural states | CPT/HCPCS: 97016; 97110; 97112; 97140; 97530 ==

== ENCOUNTER 2025-03-17 17:00 | Outpatient (RCR) | payer BC, OTHER, SELFPAY | END 2025-03-17 23:59 | disposition home or self-care (01) | LOC: PT 17:00 | PROVIDERS: Visit Provider Orthopaedic Surgery Orthopaedic Trauma | DX: Z47.89 Encounter for other orthopedic aftercare (principal); Z96.662 Presence of left artificial ankle joint | CPT/HCPCS: 20560; 97110; 97140; 97530 ==

== ENCOUNTER 2025-03-24 16:59 | Outpatient (RCR) | payer BC, OTHER, SELFPAY | END 2025-03-24 23:59 | disposition home or self-care (01) | LOC: PT 16:59 | PROVIDERS: Visit Provider Orthopaedic Surgery Orthopaedic Trauma | DX: Z47.89 Encounter for other orthopedic aftercare (principal); Z96.662 Presence of left artificial ankle joint | CPT/HCPCS: 97110; 97140; 97530 ==